=== PATIENT | female | born 1965 | race African-American/Black ===

== ENCOUNTER 2017-07-10 19:50 | Emergency (ER) | payer BC, OTHER ==
[~2017-07-10] VITALS: Ht 167.6 cm; Wt 93.4 kg
--- NOTE | ~2017-07-10 | EKG ---
[address] [address] ELECTROCARDIOGRAM REPORT Name: GUY OLIVA Room #: DEP ELY Valentin#: [id number] Admission: 07/10/17 Attend Phys: Discharge: 07/10/17 Date of : 61 Report #: [id number] THIS REPORT FOR: //name// [facility] ED Test Date: 2017-07-10 Test Time: 19:59:05 Pat Name: GUY OLIVA Department: Room: Gender: F Cost Estimating Manager: jazzy : 1965 Requested By: Henry Staton Order Number: [id number] MD: Oz Yanez Measurements Intervals Godwin Rate: 98 P: 68 AR: 134 QRS: 21 QRSD: 87 T: 19 QT: 338 QTc: 432 Interpretive Statements Sinus rhythm No significant abnormality No previous ECG available for comparison Electronically Signed On 07-12-2017 12:52:27 CDT by Oz Yanez [email or web address] <ELECTRONICALLY SIGNED> By: Oz Yanez MD, [facility] 07/12/17 1252 1959 58 Oz Yanez MD, FACC /EPI
[~2017-07-10 19:50] MED LIST: FLEXERIL PO; HYDROCODON-ACE1 EAC7 PO; NOHOMEMEDICATIONS; NORCO 5-325 TA1 EACH PO
[2017-07-10 20:22] LABS: ABSOLUTE NEUTROPHILS 4.4 thou/uL (1.4-8.2); BASOPHILS 0.5 % (0.0-2.0); EOSINOPHILS 1.6 % (0.0-3.0); HEMATOCRIT 39.3 % (37.0-47.0); HEMOGLOBIN 13.3 gm/dL (12.0-15.0); MCH 29.1 pg (26.0-34.0); MCHC 33.9 g/dL (28.0-37.0); MCV 85.8 fL (80.0-100.0); MONOCYTES 10.1 % (1.0-8.0); PLATELET COUNT 253 thou/uL (150-400); POLYS 43.8 % (36.0-66.0); RBC 4.58 mil/uL (4.20-5.00); RDW 14.1 % (10.5-14.5); WBC 9.9 thou/uL (4.0-11.0)
[2017-07-10 20:32] LABS: ANION GAP 8 mmol/L (7-16); BUN 12 mg/dL (7-18); CALCIUM 9.3 mg/dL (8.5-10.1); CHLORIDE 104 mmol/L (98-107); CO2 28 mmol/L (21-32); CREATININE 0.9 mg/dL (0.6-1.0); GLUCOSE 123 mg/dL (74-106); POTASSIUM 3.7 mmol/L (3.5-5.1); SODIUM 140 mmol/L (136-145)
[2017-07-10 20:39] LABS: TROPONIN-I < 0.04 ng/mL (<0.06)
[2017-07-10] MEDS ORDERED: OMEPRAZOLE20 MG PO (21:39)
[2017-07-10] MEDS ORDERED: NORFLEX100 MG PO (21:39)
[2017-07-10] MEDS ORDERED: TRAMADOL 50 MG50 MG PO (21:39)
[2017-07-10] MEDS ORDERED: IBUPROFEN 600600 M1 PO (21:39)
== END 2017-07-10 21:48 | disposition home or self-care (01) ==
LOC: ER 19:50
PROVIDERS: Emergency Medicine
DX: M94.0 Chondrocostal junction syndrome [Tietze] (principal); Z90.710 Acquired absence of both cervix and uterus; Z88.5 Allergy status to narcotic agent